=== PATIENT | female | born 1960 | race Caucasian/White ===

== ENCOUNTER 2023-09-21 11:22 | Inpatient (IN) | payer OTHER ==
[~2023-09-21] VITALS: Ht 165.1 cm; Wt 73.5 kg
[2023-09-21] MEDS ORDERED: CLONIDINE 0.2MG TABLET PO ONE (12:45)
[2023-09-21] MEDS: PREDNISONE 20MG TABLET PO STA (13:12)
[2023-09-21] MEDS: CLONIDINE 0.1MG TABLET PO NR (13:12)
[2023-09-21 13:39] LABS: BASOPHILS % 0.5 % (0.0-2.0); EOSINOPHILS % 4.1 % (0.0-5.0); HEMATOCRIT. 42.4 % (36.0-48.0); HEMOGLOBIN. 14.1 g/dL (12.0-16.0); LYMPHOCYTES % 27.1 % (20.0-50.0); MEAN CORPUSCULAR HEMOGLOBIN 30.3 pg (28.0-32.0); MEAN CORPUSCULAR HGB CONC 33.3 g/dL (31.0-37.0); MEAN CORPUSCULAR VOLUME 91.1 fL (81.0-99.0); MEAN PLATELET VOLUME 10.7 fl (7.4-10.4); MONOCYTES % 6.4 % (2.0-8.0); NEUTROPHILS % 61.9 % (40.0-76.0); PLATELET 243 x1000/uL (130-400); RED BLOOD CELL COUNT 4.66 mill/uL (4.2-5.4); RED CELL DISTRIBUTION WIDTH 13.8 % (11.6-14.6); WHITE BLOOD COUNT 8.8 x1000/uL (4.5-11.0)
[2023-09-21 13:46] VITALS: PULSE 85; RESP 19; O2SAT 95
[2023-09-21] MEDS: ALBUTEROL (0.083%) 2.5MG/3ML NEB HHN STA (13:46)
[2023-09-21] MEDS: IPRATROPIUM BROMIDE (0.02%) 0.5MG/2.5ML NEB HHN STA (13:46)
[2023-09-21 13:49] LABS: ALANINE AMINOTRANSFERASE 17 IU/L (10-49); ALBUMIN 4.5 g/dL (3.2-4.8); ASPARTATE AMINOTRANSFERASE 17 IU/L (<34); BILIRUBIN TOTAL 0.7 mg/dL (0.1-1.0); CALCIUM 9.4 mg/dL (8.7-10.4); CARBON DIOXIDE 29 mEq/L (21-32); CHLORIDE 104 mEq/L (98-107); CREATININE 0.8 mg/dL (0.6-1.0); GLUCOSE 111 mg/dL (70-105); POTASSIUM 3.8 mEq/L (3.5-5.1); PROTEIN TOTAL 7.8 g/dL (6.0-8.3); SODIUM 140 mEq/L (136-145); UREA NITROGEN BLOOD 12 mg/dL (9-23)
[2023-09-21] MEDS: AZITHROMYCIN 500 MG TABLET PO ONE (13:54)
[2023-09-21 14:15] LABS: TROPONIN I HIGH SENSITIVITY 126 ng/L (3.0-34)
[2023-09-21 15:25] LABS: TROPONIN I HIGH SENSITIVITY 108 ng/L (3.0-34)
[2023-09-21] MEDS: LABETALOL 5MG/ML SYR 20 MG/4 ML SYRINGE IV ONE ×2 (15:26→15:49)
[2023-09-21] MEDS: ASPIRIN 325MG EC TABLET PO ONE (15:26)
[2023-09-21] MEDS ORDERED: LIP40 PO (19:58)
[2023-09-21] MEDS ORDERED: HYDR12.54 PO (19:58)
[2023-09-21 20:00] VITALS: BP 113/46; PULSE 67; RESP 20; TEMP 98.2
[2023-09-22] VITALS: BP 120/57; PULSE 66; RESP 19; TEMP 97.4
[2023-09-22] MEDS: ACETAMINOPHEN 650MG/20.3ML UDC PO PRN (00:37)
[2023-09-22 04:00] VITALS: BP 135/50; PULSE 72; RESP 20; TEMP 97.5
[2023-09-22 08:00] VITALS: BP 139/59; PULSE 69; RESP 20; TEMP 97.9
[2023-09-22] MEDS: AMLODIPINE 2.5MG TABLET PO NR (11:54)
[2023-09-22] MEDS: ASPIRIN 81MG EC TABLET PO NR (11:54)
[2023-09-22 12:00] VITALS: BP 154/80; PULSE 69; RESP 18; TEMP 99.9
[2023-09-22 16:00] VITALS: BP 140/66; PULSE 64; RESP 16; TEMP 98.2
[2023-09-22 19:59] VITALS: BP 168/88; PULSE 65; RESP 20; TEMP 97.9
[2023-09-22] MEDS: ATORVASTATIN CALCIUM 40MG TABLET PO SCH (21:38)
[2023-09-22] MEDS: AMLODIPINE 2.5MG TABLET PO SCH (21:38)
[2023-09-23] VITALS (7 sets, daily range): BP systolic 131–175; BP diastolic 57–93; PULSE 56–79; RESP 18–20; TEMP 97.4–98
[2023-09-23 06:52] LABS: CALCIUM 8.7 mg/dL (8.7-10.4); CARBON DIOXIDE 24 mEq/L (21-32); CHLORIDE 107 mEq/L (98-107); CREATININE 0.9 mg/dL (0.6-1.0); GLUCOSE 134 mg/dL (70-105); POTASSIUM 4.1 mEq/L (3.5-5.1); SODIUM 137 mEq/L (136-145); UREA NITROGEN BLOOD 19 mg/dL (9-23)
[2023-09-23 07:38] LABS: BASOPHILS % 0.4 % (0.0-2.0); EOSINOPHILS % 4.3 % (0.0-5.0); HEMATOCRIT. 41.1 % (36.0-48.0); HEMOGLOBIN. 13.8 g/dL (12.0-16.0); LYMPHOCYTES % 45.4 % (20.0-50.0); MEAN CORPUSCULAR HEMOGLOBIN 30.7 pg (28.0-32.0); MEAN CORPUSCULAR HGB CONC 33.6 g/dL (31.0-37.0); MEAN CORPUSCULAR VOLUME 91.4 fL (81.0-99.0); MEAN PLATELET VOLUME 10.9 fl (7.4-10.4); MONOCYTES % 7.2 % (2.0-8.0); NEUTROPHILS % 42.7 % (40.0-76.0); PLATELET 224 x1000/uL (130-400); RED CELL DISTRIBUTION WIDTH 14.5 % (11.6-14.6); WHITE BLOOD COUNT 8.8 x1000/uL (4.5-11.0)
[2023-09-23] MEDS: ASPIRIN 81MG EC TABLET PO SCH (09:28)
[2023-09-23] MEDS: CLONIDINE 0.1MG TABLET PO PRN (09:28)
[2023-09-23] MEDS: HYDROCHLOROTHIAZIDE 25MG TABLET PO NR (10:06)
[2023-09-23] MEDS: MAGNESIUM OXIDE 400MG TABLET PO SCH (10:07)
[2023-09-23] MEDS: HYDRALAZINE 20MG/ML VIAL IV NR (10:26)
[2023-09-23] MEDS: MAGNESIUM 2 G PREMIX 50 ML IV NR (11:30)
[2023-09-23] MEDS: AMLODIPINE 5MG TABLET PO SCH (21:17)
[2023-09-24] VITALS (8 sets, daily range): BP systolic 125–185; BP diastolic 54–94; PULSE 58–86; RESP 19–21; TEMP 97.2–98.1; O2SAT 100
[2023-09-24 07:13] LABS: CALCIUM 9.1 mg/dL (8.7-10.4); CARBON DIOXIDE 25 mEq/L (21-32); CHLORIDE 104 mEq/L (98-107); CREATININE 0.7 mg/dL (0.6-1.0); GLUCOSE 144 mg/dL (70-105); POTASSIUM 3.9 mEq/L (3.5-5.1); SODIUM 138 mEq/L (136-145); UREA NITROGEN BLOOD 17 mg/dL (9-23)
[2023-09-24 07:19] LABS: BASOPHILS % 0.5 % (0.0-2.0); EOSINOPHILS % 5.2 % (0.0-5.0); HEMATOCRIT. 41.3 % (36.0-48.0); LYMPHOCYTES % 36.9 % (20.0-50.0); MEAN CORPUSCULAR HEMOGLOBIN 30.4 pg (28.0-32.0); MEAN CORPUSCULAR HGB CONC 33.9 g/dL (31.0-37.0); MEAN CORPUSCULAR VOLUME 89.9 fL (81.0-99.0); MEAN PLATELET VOLUME 10.8 fl (7.4-10.4); MONOCYTES % 5.4 % (2.0-8.0); PLATELET 240 x1000/uL (130-400); RED CELL DISTRIBUTION WIDTH 14.2 % (11.6-14.6); WHITE BLOOD COUNT 8.3 x1000/uL (4.5-11.0)
[2023-09-24 08:02] LABS: TROPONIN I HIGH SENSITIVITY 80 ng/L (3.0-34)
[2023-09-24] MEDS: HYDROCHLOROTHIAZIDE 25MG TABLET PO SCH (09:03)
[2023-09-24] MEDS ORDERED: AMLO5TAB88 PO (12:47)
[2023-09-24] MEDS ORDERED: ASPI-1406 PO (12:47)
[2023-09-24] MEDS ORDERED: HYDR25TA PO (12:47)
[2023-09-24] MEDS: HYDRALAZINE HCL 10MG TABLET PO PRN (14:38)
== END 2023-09-24 19:37 | disposition home or self-care (01) | DRG 199 ==
LOC: ER 11:22 → 7WST 15:05 → EDBEDREQ 15:08
PROVIDERS: ADMIT Internal Medicine; ATTEND Internal Medicine
DX: I16.0 Hypertensive urgency (principal); E78.5 Hyperlipidemia, unspecified; E83.42 Hypomagnesemia; I10 Essential (primary) hypertension; I49.3 Ventricular premature depolarization; Z79.82 Long term (current) use of aspirin; Z95.2 Presence of prosthetic heart valve; Z79.899 Other long term (current) drug therapy
CPT/HCPCS: 36415; 71045; 80048; 80053; 83735; 83880; 84484; 85025; 93005; 93306; 94640; 99291; J0360; J3475; J3490; J7512